=== PATIENT | male | born 1955 | race Caucasian/White ===

== ENCOUNTER 2023-10-12 07:13 | Emergency (ER) | payer MEDICARE, BC ==
[2023-10-12] MEDS: Oxymetazoline 0.05% Nasal Spray 30 ML Bottle NAS ONE (08:00)
[2023-10-12 08:27] LABS: BASOPHILS ABSOLUTE AUTO 0.1 K/mm3 (0.0-0.2); BASOPHILS PERCENT AUTO 0.6 % (0.0-1.0); EOSINOPHILS ABSOLUTE AUTO 0.1 K/mm3 (0.0-0.4); EOSINOPHILS PERCENT AUTO 0.7 % (0.0-6.0); HEMATOCRIT 55.4 % (42.0-52.0); IMMATURE GRAN ABSOLUTE AUTO 0.03 K/mm3 (0.00-0.05); IMMATURE GRAN PERCENT AUTO 0.4 % (0.0-0.4); LYMPHOCYTES ABSOLUTE AUTO 2.4 K/mm3 (1.0-4.8); LYMPHOCYTES PERCENT AUTO 28.6 % (24.0-44.0); MEAN CORPUSCULAR HEMOGLOBIN 34.2 pg (28.0-32.0); MEAN CORPUSCULAR HGB CONC 34.8 g/dl (32.0-36.0); MEAN CORPUSCULAR VOLUME 98.1 fl (83.0-99.0); MEAN PLATELET VOLUME 8.9 fl (9.4-12.4); MONOCYTES ABSOLUTE AUTO 0.8 K/mm3 (0.0-0.8); MONOCYTES PERCENT AUTO 9.3 % (0.0-8.0); NEUTROPHILS ABSOLUTE AUTO 5.1 K/mm3 (1.8-7.7); NEUTROPHILS PERCENT AUTO 60.4 % (41.0-71.0); PLATELET COUNT,PLT 192 K/mm3 (150-400); RED BLOOD CELL COUNT 5.65 M/mm3 (4.52-5.90)
[2023-10-12] MEDS: Labetalol 100 MG/20 ML MDV IVPUSH ONE (08:38)
[2023-10-12 08:41] LABS: INR 1.15; PROTHROMBIN TIME 12.2 SECONDS (9.7-12.0)
[2023-10-12] MEDS: Sodium Chloride 0.9% 1,000 ML IV ONE ×2 (08:54→10:56)
[2023-10-12 08:58] LABS: A/G RATIO 1.2 (1-2); ALBUMIN 3.4 g/dl (3.4-5.0); ANION GAP 12.4 (5-15); BILIRUBIN TOTAL 0.7 mg/dL (0.2-1.0); CALCIUM 9.1 mg/dL (8.5-10.1); EST CRCL DRUG DOSING (CG) 78.44 mL/min; POTASSIUM,K 4.4 mEq/L (3.5-5.1); PROTEIN TOTAL,TP 6.2 g/dl (6.4-8.2)
[2023-10-12] MEDS: Morphine 4 MG/ML Syringe IVPUSH ONE (10:27)
[2023-10-12] MEDS: Ondansetron 4 MG/2 ML SDV IVPUSH ONE (10:27)
[2023-10-12 13:27] LABS: HEMOGLOBIN 19.3 gm/dl (14.0-18.0)
[2023-10-12] MEDS: Sodium Chloride 0.9% 10 ML Syringe FLUSH ONE (13:45)
[2023-10-12] MEDS: Sodium Chloride 0.9% 100 ML IV SCH (13:45)
[2023-10-12] MEDS: Iopamidol 755 Mg/ML 100 ML Bottle IVPUSH ONE (13:45)
[2023-10-12] MEDS: Furosemide 40 MG/4 ML VIAL IVPUSH ONE (13:49)
[2023-10-12] MEDS: Amitriptyline 25 MG Tab PO ONE (13:49)
[2023-10-12 13:55] LABS: BASOPHILS PERCENT AUTO 0.4 % (0.0-1.0); EOSINOPHILS PERCENT AUTO 0.1 % (0.0-6.0); HEMATOCRIT 50.5 % (42.0-52.0); HEMOGLOBIN 17.2 gm/dl (14.0-18.0); IMMATURE GRAN ABSOLUTE AUTO 0.03 K/mm3 (0.00-0.05); IMMATURE GRAN PERCENT AUTO 0.3 % (0.0-0.4); LYMPHOCYTES PERCENT AUTO 11.2 % (24.0-44.0); MEAN CORPUSCULAR HGB CONC 34.1 g/dl (32.0-36.0); MEAN CORPUSCULAR VOLUME 99.8 fl (83.0-99.0); MONOCYTES ABSOLUTE AUTO 0.5 K/mm3 (0.0-0.8); MONOCYTES PERCENT AUTO 5.3 % (0.0-8.0); NEUTROPHILS ABSOLUTE AUTO 7.6 K/mm3 (1.8-7.7); NEUTROPHILS PERCENT AUTO 82.7 % (41.0-71.0); PLATELET COUNT,PLT 178 K/mm3 (150-400); RED BLOOD CELL COUNT 5.06 M/mm3 (4.52-5.90); WHITE BLOOD CELL COUNT,WBC 9.23 K/mm3 (3.9-11.3)
[2023-10-12] MEDS: Sodium Chloride 0.9% 250 ML IV SCH (17:00)
== END 2023-10-12 18:28 | disposition home or self-care (01) ==
LOC: JD.ED 07:13
DX: R04.0 Epistaxis (principal); D75.9 Disease of blood and blood-forming organs, unspecified; I10 Essential (primary) hypertension
CPT/HCPCS: 30905; 36415; 36430; 70450; 71275; 80053; 84484; 85025; 85610; 85730; 86900; 86901; 93005; 96361; 96374; 96375; 99284; A9270; J1921; J1940; J2270; J2405; J3490; J7030; J7050; P9017; Q9967; 30903; 93010